=== PATIENT | female | born 1975 | race American Indian/Alaskan Native ===

== ENCOUNTER 2017-01-08 19:41 | Emergency (ER) | payer BC, OTHER ==
[2017-01-08 19:42] VITALS: BMI 31.6
[2017-01-08 19:52] VITALS: TEMP 99; O2SAT 100
[2017-01-08] MEDS ORDERED: Lidocaine 5% Patch TD STA (20:27)
[2017-01-08] MEDS ORDERED: Oxycodone/Acetaminophen 5/325 mg Tab PO STA (20:27)
--- NOTE | 2017-01-08 20:31 | ED PDOC ---
Arrival/HPI <Alejandro Bautista - Last Filed: 01/08/17 21:00> - General Historian: Patient <Bud Ivy - Last Filed: 01/12/17 21:07> - General Chief Complaint: Upper Extremity Problem/Injury Time Seen by Provider: 01/08/17 20:21 - History of Present Illness Narrative History of Present Illness (Text): 01/08/17 20:29 41 y/o female, no pmh, nkda, c/o rt. shoulder pain x 2 days with no fall or trauma. Aching pain, aggravated by movement, feels stiffness , no headache or fever, no abdominal pain, no palpitation, no rash, no dizziness, no other medical or psychological complaints. (Bud Ivy) Past Medical History - Provider Review Nursing Documentation Reviewed: Yes - Infectious Disease Hx of Infectious Diseases: None - Tetanus Immunization Tetanus Immunization: Unknown - Neurological Hx Seizures: Yes - Psychiatric Hx Psychophysiologic Disorder: No Hx Depression: No Hx Emotional Abuse: No Hx Physical Abuse: No Hx Substance Use: No - Surgical History Hx Section: Yes - Anesthesia Hx Anesthesia: Yes - Suicidal Assessment Feels Threatened In Home Enviroment: No <Bud Ivy - Last Filed: 01/12/17 21:07> Family/Social History - Physician Review Nursing Documentation Reviewed: Yes Family/Social History: Unknown Family HX Smoking Status: Never Smoked Hx Alcohol Use: No Hx Substance Use: No Hx Substance Use Treatment: No <Bud Ivy - Last Filed: 01/12/17 21:07> Allergies/Home Meds <Alejandro Bautista - Last Filed: 01/08/17 21:00> <Bud Ivy - Last Filed: 01/12/17 21:07> Allergies/Adverse Reactions: Allergies No Known Allergies Allergy (Verified 01/08/17 19:46) Home Medications: Home Meds Medication Instructions Recorded Confirmed Acetaminophen with Codeine 1 tab PO Q6 PRN 01/08/17 01/08/17 [Tylenol with Codeine #3 Tablet] Review of Systems - Review of Systems Constitutional: absent: Fatigue, Fevers Eyes: absent: Vision Changes ENT: absent: Hearing Changes Respiratory: absent: SOB, Cough Cardiovascular: absent: Chest Pain Gastrointestinal: absent: Abdominal Pain, Nausea, Vomiting Musculoskeletal: Arthralgias, Myalgias. absent: Back Pain, Neck Pain, Joint Swelling Neurological: absent: Headache, Dizziness Hemo/Lymphatic: absent: Adenopathy Psychiatric: absent: Anxiety, Depression <Bud Ivy - Last Filed: 01/12/17 21:07> Physical Exam Vital Signs Reviewed: Yes Temperature: Afebrile Blood Pressure: Normal Pulse: Regular Respiratory Rate: Normal Appearance: Positive for: Well-Appearing, Non-Toxic, Comfortable Pain Distress: Moderate Mental Status: Positive for: Alert and Oriented X 3 - Systems Exam Head: Present: Atraumatic, Normocephalic Pupils: Present: PERRL Extroacular Muscles: Present: EOMI Conjunctiva: Present: Normal Mouth: Present: Moist Mucous Membranes Neck: Present: Normal Range of Motion Respiratory/Chest: Present: Clear to Auscultation, Good Air Exchange. No: Respiratory Distress, Accessory Muscle Use Cardiovascular: Present: Regular Rate and Rhythm, Normal S1, S2. No: Murmurs Abdomen: Present: Normal Bowel Sounds. No: Tenderness, Distention, Peritoneal Signs Back: Present: Normal Inspection Upper Extremity: Present: Normal Inspection, Other (Rt. shoulder: +ttp anterior shoulder joint and rt. trapezius muscle region, no rash, FROM without limitation , sensation intact, motor 5/5, +Radial pulse, capillary refill< 2 seconds, neurovascular intact. ). No: Cyanosis, Edema Lower Extremity: Present: Normal Inspection. No: Edema Neurological: Present: GCS=15, Speech Normal, Motor Func Grossly Intact, Gait Normal, Memory Normal Skin: Present: Warm, Dry, Normal Color. No: Rashes Psychiatric: Present: Alert, Oriented x 3, Normal Insight, Normal Concentration <Bud Ivy - Last Filed: 01/12/17 21:07> Vital Signs Temp Pulse Resp BP Pulse Ox 01/08/17 21:44 88 18 128/90 100 01/08/17 19:48 99.0 F 91 H 16 148/90 100 Medical Decision Making <Alejandro Bautista - Last Filed: 01/08/17 21:00> - RAD Interpretation Mandarin Speaking Nanny: Radiologist <Bud Ivy - Last Filed: 01/12/17 21:07> ED Course and Treatment: 01/08/17 20:31 -rt. shoulder xray -toradol IM/percocet/lidoderm patch -observe and reassess 01/08/17 21:32 -rt. shoulder xray show no acute findings -Pain decreased, sling given, will discharge home. -Discharge home with sling, indomethacin, flexeril, lidoderm patch, avoid strenuous exercise or activity, follow up with your own pmd and orthopedic within 2 days, return to the ER for any new or worsening signs or symptoms. ( Bud Ivy) - RAD Interpretation Radiology Orders: 01/08/17 20:27 SHOULDER RIGHT [RAD] Stat normal radiograph of the right shoulder. (Bud Ivy) - Medication Orders Current Medication Orders: Discontinued Medications Ketorolac Tromethamine (Toradol) 60 mg IM STAT STA Stop: 01/08/17 20:28 Last Admin: 01/08/17 20:48 Dose: 60 mg Lidocaine (Lidoderm) 1 ea TD STAT STA Stop: 01/08/17 20:28 Last Admin: 01/08/17 20:47 Dose: 1 ea Oxycodone/Acetaminophen (Percocet 5/325 Mg Tab) 1 tab PO STAT STA Stop: 01/08/17 20:28 Last Admin: 01/08/17 20:48 Dose: 1 tab - PA / RECEPTION AGENT / Resident Statement MICHAEL has reviewed & agrees with the documentation as recorded. MICHAEL has examined the patient and agrees with the treatment plan. <Alejandro Bautista - Last Filed: 01/08/17 21:00> - PA / RECEPTION AGENT / Resident Statement MICHAEL has reviewed & agrees with the documentation as recorded. <Bud Ivy - Last Filed: 01/12/17 21:07> Disposition/Present on Arrival <Alejandro Bautista - Last Filed: 01/08/17 21:00> - Present on Arrival Any Indicators Present on Arrival: No History of DVT/PE: No History of Uncontrolled Diabetes: No Urinary Catheter: No History of Decub. Ulcer: No History Surgical Site Infection Following: None - Disposition Have Diagnosis and Disposition been Completed?: Yes Disposition Time: 21:34 Patient Plan: Discharge <Bud Ivy - Last Filed: 01/12/17 21:07> - Disposition Diagnosis: Shoulder pain, Strain of trapezius muscle Disposition: HOME/ ROUTINE Condition: IMPROVED Additional Instructions: Discharge home with sling, indomethacin, flexeril, lidoderm patch, avoid strenuous exercise or activity, follow up with your own pmd and orthopedic within 2 days, return to the ER for any new or worsening signs or symptoms. Prescriptions: Cyclobenzaprine [Cyclobenzaprine HCl] 10 mg PO TID PRN #21 tab PRN Reason: Other Indomethacin [Indocin] 50 mg PO TID PRN #30 cap PRN Reason: Other Lidocaine 5% [Lidoderm] 1 patch TOP DAILY PRN #10 patch PRN Reason: Other Referrals: Treasure Galvan MD [Primary Care Provider] - Follow up with primary Roger Godinez MD [Staff Provider] - Follow up with primary Forms: WORK NOTE
[2017-01-08 21:45] VITALS: BP 128/90; PULSE 88; RESP 18
--- NOTE | 2017-01-09 08:08 | RAD ---
PROCEDURE: Radiographs of the Right Shoulder HISTORY: rt. shoulder pain x 2 days with no fall or trauma COMPARISON: No prior. FINDINGS: BONES: Normal. No fracture. JOINTS: Normal. Glenohumeral and acromioclavicular joints preserved. No osteoarthritis. SOFT TISSUES: Normal. OTHER FINDINGS: None. IMPRESSION: Normal radiographs of the right shoulder.
== END 2017-01-08 21:45 | disposition home or self-care (01) ==
LOC: ED 19:41
DX: M25.511 Pain in right shoulder (principal); S46.911A Strain of unspecified muscle, fascia and tendon at shoulder and upper arm level, right arm, initial encounter; X58.XXXA Exposure to other specified factors, initial encounter
CPT/HCPCS: 73030; 96372; 99283; J1885